=== PATIENT | female | born 1945 | race Caucasian/White ===

== ENCOUNTER 2017-02-16 19:53 | Inpatient (IN) | payer MEDICARE, BC ==
[~2017-02-16] VITALS: Ht 160 cm; Wt 82.7 kg
--- NOTE | ~2017-02-16 | OR ---
PATIENT'S NAME: DIANA MORALES [facility] AGE: 71 Y [address] ROOM: [place] [address] LOCATION: GICU ADMIT DATE: 02/16/2017 OR/Procedure Report DISCHARGE DATE: FAMILY PHYSICIAN: Som Mclean MD ATTENDING PHYSICIAN: MAURICIO BASHIR SURGEON: Bud Montalvo MD HAT IRONER: Aubrey Ortega PA-C DATE OF PROCEDURE: 02/19/2017 PREOPERATIVE DIAGNOSES: 1. Cholelithiasis. 2. Gallstone pancreatitis. POSTOPERATIVE DIAGNOSES: 1. Cholelithiasis. 2. Gallstone pancreatitis. PROCEDURE PERFORMED: Laparoscopic cholecystectomy. FINDINGS: The gallbladder was edematous, stones were present. ESTIMATED BLOOD LOSS: 20 mL. COMPLICATIONS: None. INDICATIONS FOR PROCEDURE: The patient is a 71-year-old female, who presented with abdominal pain, sepsis with cholangitis, and pancreatitis presumed from gallstones. She had an ERCP, has recovered both from her ERCP as well as from her cholangitis. I was asked to perform a cholecystectomy. We discussed this with the patient and her family the risks, benefits, and alternatives, and they elected to proceed. DESCRIPTION OF PROCEDURE: The patient was taken to the operating room. She was placed supine. She was given IV sedation and subsequently intubated. Her abdomen was prepped with ChloraPrep and sterilely draped. Local anesthetic was infiltrated just superior to the umbilicus. A transverse incision was created. The abdomen was elevated. A Veress needle was inserted. Pneumoperitoneum was induced. Following this, a 5-mm trocar was inserted followed by insertion of the camera. There was no injury from the initial trocar placement. Three more trocars were then positioned, an 11 mm epigastric and two 5 mm right subcostal ports. The skin overlying the peritoneum was first anesthetized prior to making these incisions. All 3 trocars were inserted under direct visualization. The gallbladder was then grasped. It was elevated. There were some adhesions that had to be taken down. It was very edematous. The infundibulum was grasped, retracted PATIENT'S NAME: DIANA MORALES [facility] AGE: 71 Y [address] ROOM: [place] [address] LOCATION: GICU ADMIT DATE: 02/16/2017 OR/Procedure Report DISCHARGE DATE: FAMILY PHYSICIAN: Som Mclean MD ATTENDING PHYSICIAN: MAURICIO BASHIR inferolaterally to expose the Calot triangle. The cystic duct and artery were dissected around circumferentially. A critical window was able to be obtained. These structures were then clipped and divided. Another small vessel was identified during the dissection. This was also clipped and divided. The gallbladder was removed from the liver bed using electrocautery. This was grasped and brought out through the epigastric port site. We did have to extract stones prior to complete removal. The operative field was then inspected. It appeared hemostatic. The area was irrigated and fluid was removed. The clips appeared to be in good position on the cystic duct and artery. The pneumoperitoneum was then released. The trocars were removed. The trocar sites appeared hemostatic. The fascia of the epigastric port site was approximated with 0 Vicryl suture followed by skin closure of all 4 port sites with 4-0 Monocryl suture. Steri-Strips and sterile dressings were placed. The patient was extubated and sent to recovery in good condition. MD PINO VILLALOBOS/amparol /[id number] d: 02/19/172030 t: 03/04/172, OPERATIVE SUMMARY
--- NOTE | ~2017-02-16 | DS ---
PATIENT'S NAME: DIANA MORALES [facility] AGE: 71 Y [address] ROOM: [id number] [place], [place] [address] LOCATION: [facility] [place] ADMIT DATE: 02/16/2017 Discharge Summary DISCHARGE DATE: 02/22/2017 FAMILY PHYSICIAN: Som Mclean MD ATTENDING PHYSICIAN: Eladio Ceja TENTATIVE DATE OF DISCHARGE: 02/22/2017. PRIMARY DIAGNOSIS: Septic shock. SECONDARY DIAGNOSES: Other acute diagnoses include: 1. Gallstone pancreatitis. 2. Acute cholangitis. 3. Choledocholithiasis. 4. Acute cholecystitis. 5. Acute on chronic hypoxic respiratory failure. 6. Elevated transaminases. 7. Chronic conditions include; paraplegia. 8. Hypophosphatemia. PRINCIPAL PROCEDURES: Done for the patient includes: Endoscopic retrograde cholangiopancreatography plus sphincterotomy plus gallstone extraction and stent placement by Dr. Cuba. Others include laparoscopic cholecystectomy by Dr. Monatlvo. LABORATORY DATA AND IMAGING STUDIES: Labs on admission: ABG; pH 7.42, pO2 of 47, and pCO2 of 37. Cardiac enzyme x1 set was negative. Troponin is less than 0.040, CPK 51, and proBNP 366. On admission, WBC was 17.7, prior to discharge was 6.7, H and H on admission were 12.6/39.3, prior to discharge were 9.8/31.5. Platelets remained stable at 169,000. Sodium on admission was 147, was stable throughout the hospital stay, and prior to discharge was 141. Creatinine on admission was 0.7, prior to discharge was 0.5. BUN was 21, was stable throughout the hospital stay. Bicarbonate on admission was 20, prior to discharge was 28, and potassium on admission was 3.8, has remained stable throughout the hospital stay, and prior to discharge was 3.7. On admission, ALT was 320, prior to discharge was 134; AST was 208, prior to discharge was 34; and alkaline phosphatase was 266, prior to discharge was 192. Total bilirubin was 3.4 on admission, prior to discharge was 0.4. On admission, phosphorus was 1.9, was repleted, prior to discharge was 3.0, and magnesium was 2.1, was stable throughout the hospital stay. UA on admission was leukocytes 100, nitrites positive, wbc's 5-10, blood 10, and bacteria negative. Repeat UA; leukocytes 25, nitrites were negative, wbc's were 2-5, and bacteria was negative. Procalcitonin on admission was 2.87, repeat was 5.17. Lipase on admission was 3309, highest level obtained was 4366, and prior to discharge was 265. D-dimer was 3.17. PATIENT'S NAME: DIANA MORALES [facility] AGE: 71 Y [address] ROOM: [address] [address] LOCATION: [facility] [place] ADMIT DATE: 02/16/2017 Discharge Summary DISCHARGE DATE: 02/22/2017 FAMILY PHYSICIAN: Som Mclean MD ATTENDING PHYSICIAN: Eladio Ceja MICROBIOLOGY: Blood culture x1 set, no growth. The second set was positive for Klebsiella pneumoniae. Urine culture, the first was contaminant, repeat was no growth x2 days. Repeat blood culture remained no growth up until discharge. RADIOLOGY: Chest x-ray is reported as rounded retrocardiac density likely represents a large hiatal hernia. Linear atelectasis is present at the left lung base. No focal infiltrate, pleural effusion, or pneumothorax. CTA for PE protocol, no evidence of pulmonary embolism. Areas of hazy patchy opacity bilaterally. Findings could be secondary to areas of atelectasis, infiltrate, or edema. CT abdomen and pelvis was reported as intrahepatic and extrahepatic biliary ductal dilatation with question of a filling defect within the distal common bile duct, underlying obstructive mass cannot be excluded, distended gallbladder with presence of gallstones correlation regarding possible acute cholecystitis, large hiatal hernia, and diverticulosis with no evidence of diverticulitis. Spirometry, the patient has no airflow limitation. There was suggestion of restrictive lung disease, but lung volumes are needed to confirm that. HOSPITAL COURSE: For history of present illness, please take a look at the H and P, which was done by Dr. Ceja. The patient was admitted to ICU given her septic shock which she presented with. She was started promptly on Zosyn. Source of her septic shock was thought to be secondary to acute cholangitis from choledocholithiasis. She did also present with gallstone pancreatitis as well. She was started on pressors. She remained in the ICU on pressors for at least 48 hours after which her pressors were successfully weaned off. She did also require oxygen, at baseline the patient normally uses oxygen at nighttime, however, while in the ICU, she required continuous use of oxygen at least to begin with she was on 4 L of oxygen which was weaned down to between 1 and 2 L of oxygen. She was also reviewed by the concrete pump operator and from the first day of the hospital stay, she was taken in for ERCP which was successful, had a sphincterotomy done with gallstone extraction as well as stent placement with plan to remove the stent in the next 3 to 4 weeks. Procedure was well tolerated by the patient without any intraoperative or postoperative complications. By the third day of the patient's hospital stay, she did get a General Surgery consult after all her enzyme numbers had looked better and she was taken into the OR for a laparoscopic cholecystectomy, which was well tolerated by the patient without any intraoperative or postoperative complications. Following the laparoscopic cholecystectomy, the patient was transferred out of the ICU to medical surgical floor where she remained and by this time, had been on physical therapy. While discussing the discharge planning with the family they were of the opinion that they would want the patient to be discharged to a swing bed in [place] where she will be able to get some more physical therapy done for more strengthening. Prior to the PATIENT'S NAME: DIANA MORALES [facility] AGE: 71 Y [address] ROOM: [place] [address] LOCATION: [facility] [place] ADMIT DATE: 02/16/2017 Discharge Summary DISCHARGE DATE: 02/22/2017 FAMILY PHYSICIAN: Som Mclean MD ATTENDING PHYSICIAN: Eladio Ceja hospital admission, the patient had been with home health aide in [place] which normally comes once a week. However, they would want something more and so they requested for patient to be discharged to a swing bed. The remaining part of this discharge summary will be done by the discharging team. Please also note that after we obtained the sensitivity of the blood culture, the patient who had been on Zosyn from the first day of the hospital stay was discontinued and was put on Levaquin to complete a total of 2 weeks of antibiotics. The patient's blood pressure medications were held throughout her hospital stay and were not restarted until after discharge. DISCHARGE MEDICATIONS: Medications upon discharge include: 1. Vitamin C 500 mg p.o. q. day. 2. Aspirin 81 mg p.o. q. day. 3. Colace 100 mg twice daily, new medication. 4. Keppra 500 mg p.o. q. day. 5. Multivitamin 1 tablet p.o. q. day. 6. Levaquin 750 mg new medication p.o. q. day for a total of 14 days of antibiotics. 7. Prilosec 20 mg p.o. twice daily. 8. Florastor 250 mg p.o. twice daily, new medication. 9. MiraLAX 17 g p.o. q. day p.r.n., new medication. 10. Ultram 50 mg p.o. q.6 hours p.r.n. 11. Calcium and vitamin D 1 tablet p.o. q. day. 12. Cozaar 50 mg p.o. q. day. 13. PreserVision 1 capsule p.o. twice daily. 14. Prolia 1 dose every 12 months. 15. Vitamin D3, 1000 units p.o. q. day. Discharge time spent on this patient is approximately 35 minutes, which included coordinating the discharge plan with the palliative care physician team. MD BRITTANI PADRON/danae /[id number] d: 02/21/17 2258 t: 03/04/17 1642, DISCHARGE SUMMARY
--- NOTE | ~2017-02-16 | PUL ---
PATIENT'S NAME: DIANA MORALES [facility] AGE: 71 Y [address] ROOM: [place] [address] LOCATION: [facility] ADMIT DATE: 02/16/2017 Pulmonary DISCHARGE DATE: FAMILY PHYSICIAN: Som Mclean MD ATTENDING PHYSICIAN: MAURICIO BASHIR NAME OF PROCEDURE: Spirometry DATE OF PROCEDURE: February 17, 2017 TECH: APOLLO Harper REASON FOR EXAM: Shortness of breath RESULTS: FVC was 1.86 liters which is 67% of predicted and low, FEV1 was 1.58 liters which is 76% of predicted and low, and FEV1/FVC was 85.2% and normal. The flow volume curve did not reveal any significant airflow limitation. PHYSICIAN INTERPRETATION: The patient has no airflow limitation. There is suggestion of restrictive lung disease but lung volumes are needed to confirm that. MD CATHI APPLE/josé manuel /[id number] dtt: 02/18/17 1622 , PILLO PIERCE dtd: 02/18/17 1313
--- NOTE | ~2017-02-16 | CON ---
PATIENT'S NAME: DIANA MORALES [facility] AGE: 71 Y [address] ROOM: [id number] [place], [place] [address] [place] [facility] [place]MIT DATE: 02/16/2017 Consultation DISCHARGE DATE: FAMILY PHYSICIAN: Som Mclean MD ATTENDING PHYSICIAN: MAURICIO BASHIR REFERRING PHYSICIAN: DEWEY GU MD Consult for Dr. Bashir, the hospitalist. HISTORY OF PRESENT ILLNESS: This pleasant 71-year-old lady admitted on 02/16/2017, status post marked weakness, generalized; did undergo eventually laparoscopic cholecystectomy on 02/19/2017. She presented initially with epigastric pain and intensity was graded as 8/10, and has also history of the followin. History of hypertension. 2. 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 3. She is at the present time and has been for quite some time using a scooter and controls it well, and she is feeling very comfortable with using it. 4. History of ischemic stroke without residual inabilities. 5. Has history of focal seizure disorder and reflux gastric disease. She is now alert, oriented. She has slight slurring in her speech and she feels that that has been with her, no new findings. She can transfer with minimum assistance, contact guard assistance of 1, can make 3 steps or so, and she is with a Salazar catheter. PHYSICAL EXAMINATION: VITAL SIGNS: Blood pressure 109/70, temperature 98.3, pulse 96.1, and respiration rate 14. She is 5 feet 3 inches and weighs 82.7 kg. GENERAL: She is alert and oriented to her surroundings, able to comprehend and express; however, as I mentioned, her speech is a little bit slurry, and she seems to be telling me over and over that that is her normal. NEUROLOGIC: Her muscle strength in bilateral lower extremities is weaker than bilateral upper extremities. Bilateral upper extremities are within normal limits. Bilateral lower extremities probably at a 4- to 3+, but is not well coordinated with her bilateral lower extremities. Deep tendon reflexes are present and equal throughout. Slightly brisk in bilateral lower extremities. MEDICATIONS: She is on the following medications: 1. MiraLax. 2. Heparin. 3. Protonix. 4. Zofran. PATIENT'S NAME: DIANA MORALES [facility] AGE: 71 Y [address] ROOM: [address] [address] [place] [facility] [place] ADMIT DATE: 02/16/2017 Consultation DISCHARGE DATE: FAMILY PHYSICIAN: Som Mclean MD ATTENDING PHYSICIAN: MAURICIO BASHIR 5. Tylenol. 6. Motrin. 7. Chassell. 8. Percocet. 9. Morphine sulfate. 10. Tramadol. 11. Multivitamin. 12. Keppra. 13. Vitamin D3. 14. Aspirin. 15. Vitamin C. 16. Colace. 17. Florastor. 18. Albuterol. 19. NaCl 0.9%. 20. Fentanyl. 21. Levaquin. 22. Dulcolax. ASSESSMENT AND PLAN: At the present time, I feel that she can do and when her pain from the cholecystectomy is better, I feel that she will be back to her normal level of activity. I feel that she can follow with her family physician and with local physical therapist. Thank you for this referral. I will be following along side with you when she is here. All the above was explained to her, she verbalized understanding and agreement. MD KASH DUNCAN/modl /[id number] d: 02/23/17 0013 t: 02/24/17 0810, CONSULTATION REPORT
--- NOTE | ~2017-02-16 | DS ---
PATIENT'S NAME: DIANA MORALES [facility] AGE: 71 Y [address] ROOM: [place] [address] [place] [facility] [place] DATE: 02/16/2017 Discharge Summary DISCHARGE DATE: 02/24/2017 FAMILY PHYSICIAN: Som Mclean MD ATTENDING PHYSICIAN: Eladio Ceja PRIMARY DIAGNOSES: 1. Severe sepsis. 2. Septic shock. 3. Klebsiella pneumonia bacteremia. 4. Acute cholangitis. 5. Choledocholithiasis, status post endoscopic retrograde cholangiopancreatogram with sphincterotomy and stent. 6. Seizure disorder. 7. Spastic paraplegia. 8. Essential hypertension. 9. Obstructive sleep apnea, on CPAP. OPERATIONS/PROCEDURES: ERCP with sphincterotomy and stent was performed by Dr. Cuba. Laparoscopic cholecystectomy was performed under the direction of Dr. Montalvo. HISTORY PRESENTING ILLNESS/REASON FOR ADMISSION: Please refer to the previous H and P, as well as subsequent discharge summary dictated by Dr. Adams. HOSPITAL COURSE: The patient was admitted to hospital as noted above with a presumptive diagnosis of severe sepsis and septic shock. She required aggressive fluid resuscitation. She received broad-spectrum antibiotic therapy with IV Zosyn. Please see the previous H and P, as well as subsequent discharge summary for details. Her discharge was postponed due to concerns with placement. In the interval, no significant complications developed. She did have a rehab evaluation by Dr. Monique at her request as she did not initially feel safe to go home. It was felt that she was too high functioning and not a good candidate for inpatient rehab. Additionally, [facility] facility placement was felt to be inappropriate. Ultimately, she was agreeable to going home with Home Health and inpatient physical therapy and occupational therapy at home. By the end of the day on 02/24/2017, it was felt she would be stable enough for discharge home with plans for close clinical followup with primary care provider as well as outpatient followup with General Surgery. DISCHARGE INSTRUCTIONS: PATIENT'S NAME: DIANA MORALES [facility] AGE: 71 Y [address] ROOM: [place] [address] [place] [facility] DATE: 02/16/2017 Discharge Summary DISCHARGE DATE: 02/24/2017 FAMILY PHYSICIAN: Som Mclean MD ATTENDING PHYSICIAN: Eladio Ceja DIET: Regular as tolerated. ACTIVITY: As tolerated. MEDICATIONS: 1. Vitamin C 500 mg p.o. daily. 2. Aspirin 81 mg p.o. daily. 3. Calcium with vitamin D 500 mg p.o. daily. 4. Vitamin D3 1000 units p.o. daily. 5. Colace 100 mg p.o. b.i.d. 6. Keppra 500 mg p.o. daily. 7. Multivitamin daily. 8. Omeprazole 20 mg p.o. b.i.d. 9. MiraLAX 17 g p.o. daily. 10. Florastor 250 mg p.o. b.i.d. x2 more weeks. 11. Albuterol per neb b.i.d. p.r.n. 12. Loving 5/325 1 to 2 tabs p.o. q.4 hours p.r.n. pain. 13. Tramadol 50 mg p.o. q.6 hours p.r.n. pain. 14. Albuterol per nebulizer q.4 hours p.r.n. wheezing or dyspnea. 15. PreserVision daily. 16. Prolia IV annually. 17. Trimethoprim 100 mg p.o. daily. FOLLOWUP: She will follow up with her primary care provider in 7 to 10 days. She will follow up Dr. Montalvo in 1 to 2 weeks. She will have a Home Health through the [facility] and physical therapy occupational therapy at home. CONDITION ON DISCHARGE: Fair. Total time spent on discharge process 45 minutes. MD ANABELL PERALTA/danae /[id number] d: 02/25/17 1055 t: 03/11/17 1725, DISCHARGE SUMMARY
--- NOTE | ~2017-02-16 | CON ---
PATIENT'S NAME: MOHINI MORALES [facility] AGE: 71 Y [address] ROOM: [address] [address] LOCATION: GICU ADMIT DATE: 02/16/2017 Consultation DISCHARGE DATE: FAMILY PHYSICIAN: Som Mclean MD ATTENDING PHYSICIAN: MAURICIO BASHIR DATE OF CONSULTATION: 02/19/2017 REFERRING PHYSICIAN: DEWEY GU MD CONSULTATION NOTE REASON FOR CONSULTATION: Gallstone pancreatitis. HISTORY OF PRESENT ILLNESS: Mohini Morales is a 71-year-old female, who states that 2 days prior to admission, she developed abdominal pain across her upper abdomen and through to her back. The following day she states that she was falling at home. She had nausea and vomiting. She also developed fever. The patient presented to our ER on February 16. The patient's evaluation included lab work that showed a white blood cell count of 17.7, hemoglobin of 12.6, hematocrit of 39.3, and platelets of 169,000. Liver function tests showed total bilirubin of 2.3, alkaline phosphatase 266, AST 208, and ALT 320. Lipase was elevated at 3309. The patient had a CT scan of the chest that was negative for pulmonary embolus. She then had a CT scan of the abdomen and pelvis that showed calcified gallstones present within a distended gallbladder with the common bile duct dilated at 19 mm. There was questionable filling defect within the distal aspect of the common bile duct raising the question of choledocholithiasis. The pancreas was within normal limits. A large hiatal hernia was noted. The patient was admitted under the care of the hospitalist and was given IV antibiotics. Blood culture did return positive with Klebsiella pneumoniae. Gastroenterology was consulted and they proceeded with an ERCP. On February 17, sphincterotomy was performed along with placement of a biliary stent. Common bile duct stones were removed. Today, Dr. Adams requested Surgery consultation for consideration of removal of the gallbladder. The patient states that she is feeling better. She has had some mild discomfort in the epigastric area. No nausea or vomiting now. The patient remains on 1 L of oxygen since having the general anesthetic for the ERCP. She has concerns about proceeding with an operation due to her past medical history. PAST MEDICAL HISTORY: PATIENT'S NAME: MOHINI MORALES [facility] AGE: 71 Y [address] ROOM: [place] [address] LOCATION: GICU ADMIT DATE: 02/16/2017 Consultation DISCHARGE DATE: FAMILY PHYSICIAN: Som Mclean MD ATTENDING PHYSICIAN: MAURICIO BASHIR ALLERGIES: CODEINE AND PLAVIX. CURRENT MEDICATIONS: Medications at home include: 1. Aspirin 81 mg p.o. q. day. 2. Calcium 1 tablet p.o. q. day. 3. Cozaar 50 mg p.o. q. day. 4. Theragran 1 tablet p.o. q. day. 5. Prilosec 20 mg p.o. b.i.d. 6. PreserVision 1 capsule p.o. b.i.d. 7. Prolia 1 dose IV q.12 months. 8. Ultram 50 mg p.o. q.6 hours p.r.n. pain. 9. Trimethoprim 100 mg p.o. q. day. 10. Ascorbic acid 500 mg p.o. q. day. 11. Vitamin D3, 1000 units p.o. q. day. 12. Keppra 500 mg p.o. q. day. 13. Z-Marin 1 dose p.o. q. day. 14. Medications in the hospital at this time include: Albuterol. 15. Levaquin. 16. Potassium phosphate. 17. Aspirin. 18. Colace. 19. Florastor. 20. Keppra. 21. Os-Brain. 22. Protonix. 23. Theragran. 24. Vitamins C. 25. Vitamin D. 26. Subcutaneous heparin along with p.r.n. medications of lidocaine, albuterol, Sublimaze, Zofran, MiraLAX, Tylenol, and Ultram. ILLNESSES: Include: 1. Spastic paraplegia, familial. 2. Focal seizure disorder. 3. Hypertension. 4. Gastroesophageal reflux disease. 5. History of CVA. PAST SURGICAL HISTORY: Operations include: 1. Four back surgeries. 2. Hip replacement. PATIENT'S NAME: MOHINI MORALES [facility] AGE: 71 Y [address] ROOM: [place] [address] LOCATION: GICU ADMIT DATE: 02/16/2017 Consultation DISCHARGE DATE: FAMILY PHYSICIAN: Som Mclean MD ATTENDING PHYSICIAN: MAURICIO BASHIR 3. Partial thyroidectomy. 4. Appendectomy. 5. Hysterectomy. SOCIAL HISTORY: The patient lives in [place]. She lives with her . She is a nonsmoker and does not consume alcohol. FAMILY HISTORY: Mother had Hodgkin's lymphoma. Sister had some type of cancer. REVIEW OF SYSTEMS: The patient denies any recent sinus congestion, ear pain, or throat pain. She states that she always has a cough and is always short of breath. This is no worse for her now than usual. Denies any chest pain, and she does have occasional constipation due to decreased activity. No blood in her stool. Denies any problems urinating, although she is noticing frequency of urination today most likely from IV fluids and recovery from the sepsis. PHYSICAL EXAMINATION: VITAL SIGNS: Temperature is 98.6, blood pressure 128/78, pulse 92, and respirations 20. GENERAL: A 71-year-old female, who is sitting up in the recliner. She is alert, pleasant, and cooperative. She does have some slurring of her speech that she states is from the paraplegia and also from the stroke. She states that she uses a scooter at home for mobility purposes. HEENT: Eyes, ears, nose, and throat are otherwise grossly normal. She is on 1 L of oxygen by nasal cannula. LUNGS: Diminished, but clear. HEART: Regular rate and rhythm. ABDOMEN: Bowel sounds present. Abdomen is soft, with mild tenderness in the epigastric region. She has a few areas of ecchymoses from the heparin subcutaneous. I have difficulty visualizing the scars from the operations that she states that she has had including the appendectomy and hysterectomy. There does appear to be a small scar at the umbilicus. No obvious hernia. EXTREMITIES: The patient moves her upper extremities without difficulty. She states that she is unable to ambulate due to the paraplegia. LABORATORY DATA: Lab work: White blood cell count has improved from 17.7 on admission to 8.9 yesterday. Total bilirubin increased from 2.3 on admission to 3.4 on February 17 and down to 0.7 today. AST has improved from 208 to 34. ALT improved from 320 down to 134. Lipase has improved from 3309 on February 16, 4366 on February 17, and 265 today. Amylase was 588 on February 17 and has not been repeated. Repeat blood cultures are showing no growth at this time. Urine culture has PATIENT'S NAME: MOHINI MORALES [facility] AGE: 71 Y [address] ROOM: [id number] [place], [place] [address] LOCATION: [facility] ADMIT DATE: 02/16/2017 Consultation DISCHARGE DATE: FAMILY PHYSICIAN: Som Mclean MD ATTENDING PHYSICIAN: MAURICIO BASHIR. Pulmonary function tests showed suggestion of restrictive lung disease, but lung volumes would be needed to confirm that. There was no airflow limitation. ASSESSMENT: 1. A 71-year-old female admitted on 02/16/2017 with sepsis with Klebsiella pneumoniae in her blood and evidence for cholangitis, gallstone pancreatitis, and choledocholithiasis, etc,. The patient is status post endoscopic retrograde cholangiopancreatography. 2. Spastic paraplegia, familial. 3. Focal seizure disorder. 4. History of stroke. 5. Hypertension. 6. Gastroesophageal reflux disease. PLAN: I discussed with the patient and family recommendations in regard to removal of the gallbladder. I discussed that the treatment initially was to remove the gallstones from the common bile duct which has been completed by Gastroenterology. The next step is to remove the gallbladder to try to help prevent this from happening again. The patient and family are a little hesitant given the patient's history of the paraplegia and some respiratory issues. I discussed with them that the alternative approach would be not to proceed with surgery, but to take the chances in regard to whether this happens again or not. Certainly, she would be at increase risk given one episode of gallstone pancreatitis/choledocholithiasis for it happening again. After some discussion, the patient and family agree that they would rather proceed with surgery rather than taking the risks of that happening again. I discussed risks of bleeding, infection, injury to other structures, heart problems, lung problems, etc,. I discussed with the patient that given her history of the paraplegia and respiratory issues, she may need to be in the hospital longer than the average cholecystectomy patient. I also discussed the potential of needing to convert to an open procedure. Ultimately, they did decide to go ahead and proceed with surgery. We will plan to proceed early this afternoon. Dr. Saunders will evaluate the patient preoperatively. We will review over his recommendations along with risks, benefits of surgery versus observation. At that time, if they choose to proceed then the consent will be obtained. The patient has been made n.p.o. She continues on Levaquin for antibiotic. Dr. Saunders is involved in assessment and plan and is available for supervision. LIN MCKEON PA-C FOR TEVIN SAUNDERS MD PATIENT'S NAME: MOHINI MORALES [facility] AGE: 71 Y [address] ROOM: [place] [address] LOCATION: [facility] ADMIT DATE: 02/16/2017 Consultation DISCHARGE DATE: FAMILY PHYSICIAN: Som Mclean MD ATTENDING PHYSICIAN: MAURICIO BASHIR/danae /[id number] d: 02/19/17 1350 t: 03/04/17 1125, CONSULTATION REPORT
--- NOTE | ~2017-02-16 | ER ---
PATIENT'S NAME: DIANA MORALES [facility] AGE: 71 Y [address] ROOM: [place] [address] LOCATION: [facility] ADMIT DATE: 02/16/2017 ER/Outpatient Report DISCHARGE DATE: FAMILY PHYSICIAN: PHYSICIAN, UNKNOWN ATTENDING PHYSICIAN: MAURICIO BASHIR Time of Arrival: 1950 hours. Time of Evaluation: 1950 hours. CHIEF COMPLAINT: Chest pain and midepigastric pain. HISTORY OF PRESENT ILLNESS: The patient is a 71-year-old female, who presents to the emergency department today with a chief complaint of chest pain and midepigastric abdominal pain. She reports this started prior to arrival. She reports she took her temperature at home and it was 102. She has also had some nausea and vomiting. She does report some shortness of breath also with it. She is paraplegic, however, is feeling more weak than normal. The pain is currently 9/10 in severity. She denies any diaphoresis. Denies any ripping or tearing sensation. PAST MEDICAL HISTORY: Hypertension, paraplegia from an unknown cause, CVA 10 years ago, hiatal hernia. PAST SURGICAL HISTORY: Hysterectomy, appendectomy, thyroidectomy, back surgery x4, right hip replacement. SOCIAL HISTORY: The patient denies any tobacco, alcohol, or illicit drug use. ALLERGIES: TO CODEINE AND PLAVIX. MEDICATIONS: Please see list. PRIMARY CARE DOCTOR: None. REVIEW OF SYSTEMS: All systems are reviewed by myself and are negative with the exception of those discussed in the HPI and past medical history. PATIENT'S NAME: DIANA MORALES [facility] AGE: 71 Y [address] ROOM: [place] [address] LOCATION: [facility] ADMIT DATE: 02/16/2017 ER/Outpatient Report DISCHARGE DATE: FAMILY PHYSICIAN: PHYSICIAN, UNKNOWN ATTENDING PHYSICIAN: MAURICIO BASHIR PHYSICAL EXAMINATION: VITAL SIGNS: Weight 76.8 kg, blood pressure 98/66, pulse 110, respiratory rate 20, temperature 99.1, oxygen saturation is 88% on room air, 96% on 4 L nasal cannula. GENERAL: The patient is a 71-year-old female, who appears older than stated age. She is sleepy, but arousable. She does answer questions appropriately. HEENT: Head: Normocephalic, atraumatic. Pupils are equal, round, and reactive to light and accommodating. Nares are patent bilaterally. TMs are clear. Oropharynx is clear. Mucous membranes are dry. NECK: Supple. There is no nuchal rigidity. CARDIOVASCULAR: Tachycardic. No murmurs, rubs, or gallops. LUNGS: Clear to auscultation bilaterally. No wheezes, rales, or rhonchi. ABDOMEN: Soft with moderate mid epigastric and right upper quadrant tenderness to palpation. She has no rebound, rigidity, or guarding. Positive bowel sounds. MUSCULOSKELETAL: The patient is a paraplegic, decreased weakness in bilateral lower extremities. SKIN: Warm and dry. LABORATORY DATA AND X-RAYS: Labs and x-rays are obtained. EKG is obtained, is interpreted by myself at 2002 hours. It shows sinus tachycardia with a rate of 111, normal axis, normal interval. No ST elevation, ST depression. There is nonspecific T-wave inversions. Venous blood gas: 7.42, 34, 47, 23, -1.8. Lactate is 1.8. CBC is remarkable for white blood cell count 17.7, 16% bands, otherwise normal. Lipase is 3309. Pro-BNP is 366. Procalcitonin is 2.87. CMP is remarkable for a CO2 of 20, total bilirubin of 2.3, alkaline phosphatase 266, AST is 208, ALT is 320. Mag is normal. CK is normal. CK-MB is normal. Troponin is normal. D-dimer is elevated at 3.147. Coags are normal. Urinalysis with positive nitrite, 100 leukocyte esterase, 50 ketones, 10 blood, 5-10 wbc's/epithelials. A CT scan of the chest is obtained. It shows no evidence of PE. There is a large hiatal hernia. There is multifocal patchy atelectasis bilaterally. There is mild nonspecific septal thickening in the lungs, which could represent mild edema. A CT scan of the abdomen and pelvis shows small hepatic hypodensities likely cysts. There is cholelithiasis with prominent distention of the gallbladder. There is moderate biliary ductal dilatation. There is a possible small stone in the distal common bile duct. There is no hydronephrosis. There is a small splenic hypodensity, likely a cyst. Pancreas is unremarkable. Abdominal aorta is normal in caliber. There is a moderate hiatal hernia, prominent diverticulosis. Appendix is not seen. No bowel obstruction. Impression: Cholelithiasis with marked gallbladder PATIENT'S NAME: DIANA MORALES [facility] AGE: 71 Y [address] ROOM: [id number] [place], [place] [address] LOCATION: [facility] ADMIT DATE: 02/16/2017 ER/Outpatient Report DISCHARGE DATE: FAMILY PHYSICIAN: PHYSICIAN, UNKNOWN ATTENDING PHYSICIAN: MAURICIO BASHIR distention and moderate biliary ductal dilatation with possible choledocholithiasis. IMPRESSION: 1. Acute cholangitis with suspected choledocholithiasis and cholelithiasis. 2. Acute pancreatitis. 3. Severe sepsis due to acute cholangitis. 4. Hypotension, fluid responsive. 5. Acute urinary tract infection, suspect bladder, present on arrival. 6. Critical care time 35 minutes. 7. Initial visit. EMERGENCY DEPARTMENT COURSE: The patient was brought back to the examination room. Seen and evaluated immediately upon arrival by myself. An IV is established. The patient is noted to have blood pressures in the 80s systolicly over 50s diastolic. Severe sepsis time zero is noted to be 2006. She is quite sleepy but does answer questions and is arousable. The patient is given 2.5 L of normal saline IV. Levophed drip was ordered, however, was not required as the patient was fluid responsive. The patient was ordered Tylenol, however, she did report that she took it 30 minutes prior to arrival. She did have reported fever of 102 at home. T-max here in the emergency department is 99.1. Bedside ultrasound was performed by myself, the gallbladder exam shows cholelithiasis, there is no pericholechystic fluid, no gallbladder wall thickening, common bile duct measures 1.2 cm. Further laboratory analysis and imaging are obtained as described above. The patient was started on Zosyn 4.5 g IV as well as vancomycin 1500 mg IV. The results of the testing are obtained. I have discussed the case with Dr. [place] with Gastroenterology at 2150 hours. He has recommended LR at 150 to 300 mL per hour as well as make the patient n.p.o. with anticipation for endoscopy and ERCP tomorrow. I have discussed the case with Dr. Bashir with the Hospitalist Service. He does agree to accept the patient for further evaluation, treatment, and management. The patient did require cumulative critical care time of 35 minutes. This critical care time did include talking with family, talking with consultants, ordering tests, reviewing tests, as well as close monitoring the patient with sepsis. The patient was here in the emergency department for greater than 2 hours. The results were discussed with the patient and her daughter, who is at the bedside. Their questions were answered. They are without further questions at this time. DISPOSITION: The patient is admitted under the care of Dr. Bashir in consultation with Gastroenterology in fair condition. ROYER ESCOBAR DO PATIENT'S NAME: DIANA MORALES [facility] AGE: 71 Y [address] ROOM: [place] [address] LOCATION: [facility] ADMIT DATE: 02/16/2017 ER/Outpatient Report DISCHARGE DATE: FAMILY PHYSICIAN: PHYSICIAN, UNKNOWN ATTENDING PHYSICIAN: MAURICIO BASHIR/danae /[id number] d: 02/17/17 0249 t: 02/17/17 0433, OUTPATIENT REPORT
--- NOTE | ~2017-02-16 | HP ---
PATIENT'S NAME: DIANA MORALES [facility] AGE: 71 Y [address] ROOM: [place] [address] LOCATION: [facility] ADMIT DATE: 02/16/2017 History & Physical DISCHARGE DATE: FAMILY PHYSICIAN: PHYSICIAN, UNKNOWN ATTENDING PHYSICIAN: MAURICIO BASHIR DATE OF SERVICE: 02/16/2017 CHIEF COMPLAINT: Epigastric pain, nausea, vomiting, and fever. HISTORY OF PRESENT ILLNESS: This is a 71-year-old female, who lives in [place] and came here to [place] to visit her daughter and the story is that since yesterday around 3:00 p.m., the patient has been complaining of epigastric pain, intensity about 8/10, with radiation to the back associated with nausea and vomiting, about three episodes of emesis without blood and also had a fever of about 102 taken at home today. Her last bowel movement was this morning and it was normal. The patient chronically has dyspnea on exertion, and this has been going on for a long time and has not worsened. No chest pain. No cough, urinary frequency, urgency, or dysuria. Today, she came to the hospital here because the epigastric pain was getting worse. The patient has never felt like this before. REVIEW OF SYSTEMS: As mentioned in the history of present illness. All other systems reviewed and negative, except those mentioned in the history of present illness. PAST MEDICAL HISTORY: 1. Hypertension. 2. 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 3. History of prior ischemic stroke without neurological sequela. 4. Focal seizure disorder. 5. Gastroesophageal reflux disease. This is per patient interview because we do not have any medical records on file in the [facility]. ALLERGIES: PLAVIX, WHICH CAUSES HIVES AND CODEINE, WHICH CAUSES HER TO FEEL SICK. HOME MEDICATIONS: Currently will be reconciled. PATIENT'S NAME: DIANA MORALES [facility] AGE: 71 Y [address] ROOM: [place] [address] LOCATION: [facility] ADMIT DATE: 02/16/2017 History & Physical DISCHARGE DATE: FAMILY PHYSICIAN: PHYSICIAN, UNKNOWN ATTENDING PHYSICIAN: MAURICIO BASHIR SOCIAL HISTORY: The patient denies any alcohol or illegal drugs or cigarette smoking. FAMILY HISTORY: Father had congestive heart failure and mother had Hodgkin lymphoma. PAST SURGICAL HISTORY: Lower back surgery in the past. PHYSICAL EXAMINATION: VITAL SIGNS: At the time of my dictation, temperature 98, blood pressure 110/80, MAP of 83, respiration of 14, heart rate of 89, and saturation of 96% on 1 L nasal cannula. GENERAL APPEARANCE: Alert and oriented x3. Currently, in no acute distress. HEENT: Pupils are equally round and reactive to light. She does have icteric sclerae in both eyes, very mild. Also, has jaundice under her tongue. Nasal turbinates are normal bilaterally. Moist oral mucosa. NECK: No JVD. CARDIOVASCULAR: Regular rate and rhythm. No murmur. No rubs. No gallops. RESPIRATORY: Clear. ABDOMEN: Obese, soft, tender to palpation in the epigastric area and in the right upper quadrant. Could not appreciate any palpable mass. Nondistended. Bowel sounds are present. No abdominal rigidity. No finding to suggest peritonitis. EXTREMITIES: Bilateral pitting edema in both lower extremities. This is chronic and unchanged according to the patient. NEUROLOGIC: Muscle weakness about 2-3/5 in both lower extremities. This is chronic. Otherwise, unremarkable. SKIN: Some erythema in the right lower extremity in the right foot. This is chronic according to the patient. No cyanosis. No ulcer. LABORATORY DATA: Venous blood gas performed on room air showed pH of 7.42, pCO2 of 34, bicarbonate 22.1, lactic acid 1.8. Troponin less than 0.04. ProBNP is 366, CPK 51. White blood cells 17.7, hemoglobin 12.6, hematocrit 39.3, MCV 96.1, platelet 169. Glucose 138, creatinine 0.7, sodium 142, potassium 3.8, chloride 110, CO2 of 20, calcium 8.9, total protein 6.7, albumin 3.6, AST 208, ALT 320, alkaline phosphatase 266, total bilirubin 2.3, magnesium 2.1, anion gap 15.8, GFR more than 60. PATIENT'S NAME: DIANA MORALES [facility] AGE: 71 Y [address] ROOM: [place] [address] LOCATION: [facility] ADMIT DATE: 02/16/2017 History & Physical DISCHARGE DATE: FAMILY PHYSICIAN: PHYSICIAN, UNKNOWN ATTENDING PHYSICIAN: MAURICIO BASHIR INR 1.02. PTT 24. Urinalysis: 100 leukocytes, positive nitrites, negative bacteria, white blood cells 5-10, blood 10. Lipase 3309. CK-MB 0.8. Procalcitonin 2.87. D-dimer 3.17. IMAGING STUDY: 1. Chest x-ray is taken and official reading is pending. 2. CT pulmonary angiogram on admission. The preliminary report was read as no pulmonary embolism. Multifocal patchy atelectasis bilaterally. No pleural effusion. Large hiatal hernia. No dissection of the aorta. Mild nonspecific septal thickening in the lungs could represent mild edema. 3. CT abdomen and pelvis with IV contrast on admission. The preliminary report is read as cholelithiasis with marked gallbladder dilatation and moderate biliary ductal dilatation. There is possible choledocholithiasis. There is also moderate biliary ductal dilatation. There is also a possible small stone in the distal common bile duct. No hydronephrosis. The pancreas is unremarkable. Moderate hiatal hernia. ASSESSMENT AND PLAN: 1. Regarding her severe sepsis with hypotension, secondary to cholelithiasis with possible cholecystitis and pancreatitis as well as cholangitis, secondary to possible choledocholithiasis: The plan will be IV fluids. She already got 3 L in the ER. Therefore, I do not want to volume overload her. Currently, blood pressure is stable. I will give her lactated Ringer's maintaining at 100 mL/h for now. If she becomes hypotensive with MAP less than 65, then we will start IV Levophed drip. Coverage with antibiotics with IV Zosyn. Pain control with IV fentanyl p.r.n. and IV morphine p.r.n. N.p.o. Gastroenterology has already been contacted by the ER physician and the plan will be ERCP in the morning by Dr. [place]. IV Zofran p.r.n. for nausea. Ultrasound of the abdomen can be obtained if necessary. But the patient is already scheduled for the ERCP in the morning. Deferred to the morning team to decide about ultrasound of the abdomen which can have a better visualization of the biliary tract. Further plan depends on clinical course. 2. Regarding her hypertension: Hold all the blood pressure medication in the setting of a severe sepsis with hypotension. 3. Regarding her focal seizure disorder: Continue the home Keppra. We will be using IV dose instead of p.o. because she is n.p.o. Home medication is currently being reconciled and will be addressed once the medication list is ready. 4. Regarding her hiatal hernia: Continue IV Protonix 40 mg daily. 5. Regarding her obstructive sleep apnea, on home CPAP: The daughter will PATIENT'S NAME: DIANA MORALES [facility] AGE: 71 Y [address] ROOM: [place] [address] LOCATION: [facility] ADMIT DATE: 02/16/2017 History & Physical DISCHARGE DATE: FAMILY PHYSICIAN: PHYSICIAN, UNKNOWN ATTENDING PHYSICIAN: MAURICIO BASHIR bring the CPAP from home and she can continue the CPAP at night. 6. DVT prophylaxis: Compression devices in the setting of ERCP in the morning. 7. Code Status: She is a full code. Time spent on the day of admission 45 minutes including chart review, interviewing the patient, examining the patient, addressing all the questions and concerns the patient had, and going over the plan of care in detail with the patient and nurses. Further plan depends on the clinical course. MAURICIO BASHIR MD CC/danae /[id number] D: [id number] T: 449 HISTORY & PHYSICAL
[2017-02-16 20:08] LABS: BICARBONATE 22.1 mmol/L (18.0-23.0); LACTATE 1.8 mEq/L (0.50-1.60); PCO2 34 mmHg (35-45)
[2017-02-16 20:09] LABS: PO2 47 mmHg (80-90)
[2017-02-16 20:10] LABS: HEMATOCRIT 39.3 % (33.0-46.0); HEMOGLOBIN 12.6 g/dL (10.0-15.0); MCH 30.8 pg (27.0-34.0); MCHC 32.1 gm/dL (32.0-36.5); MCV 96.1 fl (83.0-98.0); MPV 11.3 fl (9.4-12.4); PLATELET COUNT 169 K/uL (150-450); RBC 4.09 M/uL (3.50-5.50); RDW-CV 14.4 % (11.9-14.6); WBC 17.7 K/uL (4.0-11.0)
[2017-02-16 20:19] LABS: INR - (THERAPEUTIC) 1.02 (0.92-1.07); PROTIME 10.7 SECONDS (9.8-11.4); PTT 24 SECONDS (25-32)
[2017-02-16 20:30] LABS: ALBUMIN 3.6 gm/dL (3.5-5.0); ALK PHOS 266 IU/L (33-138); ANION GAP 15.8 (10.0-19.0); AST 208 IU/L (10-40); BLOOD UREA NITROGEN 21 mg/dL (6-24); CALCIUM 8.9 mg/dL (8.5-10.5); CHLORIDE 110 mMol/L (96-110); CO2 20 mMol/L (22-32); CPK 51 IU/L (21-215); CREATININE 0.7 mg/dL (0.5-1.1); ESTIMATED GFR (MDRD EQUATION) > 60; MAGNESIUM 2.1 mg/dL (1.8-2.6); POTASSIUM 3.8 mMol/L (3.7-5.1); SODIUM 142 mMol/L (135-145); TOTAL BILIRUBIN 2.3 mg/dL (0.0-1.5); TOTAL PROTEIN 6.7 g/dL (6.0-8.4)
[2017-02-16 20:32] LABS: ALT 320 IU/L (12-78)
[2017-02-16 20:34] LABS: BILIRUBIN URINE NEGATIVE (NEGATIVE); BLOOD URINE 10 /UL (NEGATIVE); COLOR URINE AMBER (YELLOW); GLUCOSE URINE NEGATIVE (NEGATIVE); KETONE URINE 50 mg/dL (NEGATIVE); LEUKOCYTES URINE 100 /UL (NEGATIVE); NITRITE URINE POSITIVE (NEGATIVE); PROTEIN URINE 30 mg/dL (NEGATIVE); SPEC GRAVITY URINE 1.025 (1.003-1.035); TURBIDITY URINE CLEAR (CLEAR); UROBILINOGEN URINE 8 mg/dL (NORMAL)
[2017-02-16 20:36] LABS: ABSOLUTE NEUTROPHIL CT (ANC) 16.6 K/uL (1.8-7.8); BANDED NEUTROPHIL # 2.8 K/uL (0.0-0.1); BANDED NEUTROPHILS % 16 %; LYMPHOCYTE # 0.4 K/uL (0.8-4.0); LYMPHOCYTE % 2 %; MONOCYTE # 0.5 K/uL (0.0-1.0); SEGMENTED NEUTROPHIL # 13.8 K/uL (1.8-7.8); SEGMENTED NEUTROPHIL % 78 %
[2017-02-16 20:41] LABS: BACTERIA URINE NEGATIVE (NEGATIVE); MUCUS URINE 1+ (NEGATIVE); RBC URINE NEGATIVE #/HPF (NEGATIVE)
[2017-02-17 08:17] LABS: HEMATOCRIT 37.1 % (33.0-46.0); HEMOGLOBIN 11.6 g/dL (10.0-15.0); MCH 30.9 pg (27.0-34.0); MCHC 31.3 gm/dL (32.0-36.5); MCV 98.9 fl (83.0-98.0); MPV 11.3 fl (9.4-12.4); RBC 3.75 M/uL (3.50-5.50); RDW-CV 14.5 % (11.9-14.6); WBC 11.6 K/uL (4.0-11.0)
[2017-02-17 08:23] LABS: INR - (THERAPEUTIC) 1.03 (0.92-1.07); PROTIME 10.8 SECONDS (9.8-11.4)
[2017-02-17 08:31] LABS: ALBUMIN 2.8 gm/dL (3.5-5.0); ALK PHOS 233 IU/L (33-138); ALT 264 IU/L (12-78); ANION GAP 11.6 (10.0-19.0); AST 145 IU/L (10-40); BLOOD UREA NITROGEN 13 mg/dL (6-24); CALCIUM 7.8 mg/dL (8.5-10.5); CHLORIDE 113 mMol/L (96-110); CO2 23 mMol/L (22-32); CREATININE 0.6 mg/dL (0.5-1.1); ESTIMATED GFR (MDRD EQUATION) > 60; POTASSIUM 3.6 mMol/L (3.7-5.1); SODIUM 144 mMol/L (135-145); TOTAL PROTEIN 5.7 g/dL (6.0-8.4)
[2017-02-17 08:33] LABS: TOTAL BILIRUBIN 3.4 mg/dL (0.0-1.5)
[2017-02-17] MEDS ORDERED: CALCIUM 500 +1 EACH PO (09:39)
[2017-02-17] MEDS ORDERED: ASPIRIN LO-DOSE81 MG PO (09:39)
[2017-02-17] MEDS ORDERED: THERAGRAN-M1 TAB PO (09:40)
[2017-02-17] MEDS ORDERED: COZAAR50 MG PO (09:40)
[2017-02-17] MEDS ORDERED: PRILOSEC20 MG PO (09:41)
[2017-02-17] MEDS ORDERED: PRESERVISION A1 EACH PO (09:41)
[2017-02-17] MEDS ORDERED: PROLIA60 MG/ML IV (09:43)
[2017-02-17] MEDS ORDERED: ULTRAM50 MG PO (09:45)
[2017-02-17] MEDS ORDERED: VITAMIN D1000 UNIT PO (09:46)
[2017-02-17] MEDS ORDERED: ASCORBIC ACID500 MG PO (09:46)
[2017-02-17] MEDS ORDERED: TRIMETHOPRIM100 MG PO (09:46)
[2017-02-17] MEDS ORDERED: KEPPRA500 MG PO (09:47)
[2017-02-17] MEDS ORDERED: Z-PAK250 MG PO (09:54)
[2017-02-18 05:27] LABS: HEMATOCRIT 32.1 % (33.0-46.0); HEMOGLOBIN 9.9 g/dL (10.0-15.0); IMMATURE GRANULOCYTE # 0.1 K/uL (0.0-0.3); IMMATURE GRANULOCYTE % 0.7 %; LYMPHOCYTE # 0.6 K/uL (0.8-4.0); LYMPHOCYTE % 6.5 %; MCH 30.7 pg (27.0-34.0); MCHC 30.8 gm/dL (32.0-36.5); MCV 99.4 fl (83.0-98.0); MONOCYTE # 0.5 K/uL (0.0-1.0); MONOCYTE % 6.1 %; MPV 11.3 fl (9.4-12.4); NEUTROPHIL # (ANC) 7.7 K/uL (1.8-7.8); NEUTROPHIL % 86.7 %; NRBC % 0 /100WBC (0-0.00); PLATELET COUNT 166 K/uL (150-450); RBC 3.23 M/uL (3.50-5.50); RDW-CV 14.2 % (11.9-14.6); WBC 8.9 K/uL (4.0-11.0)
[2017-02-18 05:39] LABS: ALBUMIN 2.5 gm/dL (3.5-5.0); ALK PHOS 175 IU/L (33-138); ALT 169 IU/L (12-78); ANION GAP 14.4 (10.0-19.0); AST 54 IU/L (10-40); BLOOD UREA NITROGEN 12 mg/dL (6-24); CHLORIDE 114 mMol/L (96-110); CO2 21 mMol/L (22-32); CREATININE 0.4 mg/dL (0.5-1.1); ESTIMATED GFR (MDRD EQUATION) > 60; MAGNESIUM 2.2 mg/dL (1.8-2.6); POTASSIUM 4.4 mMol/L (3.7-5.1); SODIUM 145 mMol/L (135-145)
[2017-02-18 05:41] LABS: CALCIUM 7.4 mg/dL (8.5-10.5); TOTAL BILIRUBIN 0.6 mg/dL (0.0-1.5)
[2017-02-18 16:02] LABS: BILIRUBIN URINE NEGATIVE (NEGATIVE); BLOOD URINE NEGATIVE /UL (NEGATIVE); COLOR URINE YELLOW (YELLOW); GLUCOSE URINE NEGATIVE (NEGATIVE); KETONE URINE 15 mg/dL (NEGATIVE); LEUKOCYTES URINE 25 /UL (NEGATIVE); NITRITE URINE NEGATIVE (NEGATIVE); PROTEIN URINE 15 mg/dL (NEGATIVE); SPEC GRAVITY URINE 1.025 (1.003-1.035); TURBIDITY URINE 1+ (CLEAR); UROBILINOGEN URINE 4 mg/dL (NORMAL)
[2017-02-18 16:20] LABS: BACTERIA URINE NEGATIVE (NEGATIVE); EPITHELIAL URINE 20-50 #/HPF (NEGATIVE); RBC URINE NEGATIVE #/HPF (NEGATIVE)
[2017-02-19 06:00] LABS: ALBUMIN 2.8 gm/dL (3.5-5.0); ALK PHOS 192 IU/L (33-138); ALT 134 IU/L (12-78); AST 34 IU/L (10-40); BLOOD UREA NITROGEN 13 mg/dL (6-24); CALCIUM 8.5 mg/dL (8.5-10.5); CHLORIDE 112 mMol/L (96-110); CO2 24 mMol/L (22-32); CREATININE 0.6 mg/dL (0.5-1.1); ESTIMATED GFR (MDRD EQUATION) > 60; SODIUM 142 mMol/L (135-145); TOTAL BILIRUBIN 0.7 mg/dL (0.0-1.5)
[2017-02-19 06:01] LABS: PHOSPHORUS 1.8 mg/dL (2.5-4.9)
[2017-02-20 05:10] LABS: BASOPHIL % 0.3 %; EOSINOPHIL # 0.2 K/uL (0.0-0.5); EOSINOPHIL % 3.6 %; HEMATOCRIT 31.5 % (33.0-46.0); HEMOGLOBIN 9.8 g/dL (10.0-15.0); IMMATURE GRANULOCYTE # 0.1 K/uL (0.0-0.3); IMMATURE GRANULOCYTE % 0.9 %; LYMPHOCYTE # 1.2 K/uL (0.8-4.0); LYMPHOCYTE % 18.4 %; MCH 31.1 pg (27.0-34.0); MCHC 31.1 gm/dL (32.0-36.5); MONOCYTE # 0.6 K/uL (0.0-1.0); MPV 11.1 fl (9.4-12.4); NEUTROPHIL # (ANC) 4.6 K/uL (1.8-7.8); NEUTROPHIL % 67.8 %; NRBC % 0 /100WBC (0-0.00); PLATELET COUNT 166 K/uL (150-450); RBC 3.15 M/uL (3.50-5.50); RDW-CV 14.6 % (11.9-14.6); WBC 6.7 K/uL (4.0-11.0)
[2017-02-20 05:24] LABS: BLOOD UREA NITROGEN 7 mg/dL (6-24); CALCIUM 7.9 mg/dL (8.5-10.5); CHLORIDE 108 mMol/L (96-110); CO2 29 mMol/L (22-32); CREATININE 0.4 mg/dL (0.5-1.1); ESTIMATED GFR (MDRD EQUATION) > 60; SODIUM 143 mMol/L (135-145)
[2017-02-21 05:39] LABS: ANION GAP 9.7 (10.0-19.0); BLOOD UREA NITROGEN 10 mg/dL (6-24); CALCIUM 8.5 mg/dL (8.5-10.5); CHLORIDE 107 mMol/L (96-110); CO2 28 mMol/L (22-32); CREATININE 0.5 mg/dL (0.5-1.1); ESTIMATED GFR (MDRD EQUATION) > 60; POTASSIUM 3.7 mMol/L (3.7-5.1); SODIUM 141 mMol/L (135-145)
[2017-02-22 06:48] LABS: ANION GAP 11.6 (10.0-19.0); BLOOD UREA NITROGEN 15 mg/dL (6-24); CALCIUM 8.6 mg/dL (8.5-10.5); CHLORIDE 108 mMol/L (96-110); CO2 29 mMol/L (22-32); CREATININE 0.6 mg/dL (0.5-1.1); ESTIMATED GFR (MDRD EQUATION) > 60; MAGNESIUM 2.1 mg/dL (1.8-2.6); POTASSIUM 3.6 mMol/L (3.7-5.1); SODIUM 145 mMol/L (135-145)
[2017-02-23 04:30] LABS: HEMATOCRIT 35.1 % (33.0-46.0); HEMOGLOBIN 11.4 g/dL (10.0-15.0)
[2017-02-23 04:52] LABS: ANION GAP 13.5 (10.0-19.0); BLOOD UREA NITROGEN 17 mg/dL (6-24); CALCIUM 8.8 mg/dL (8.5-10.5); CHLORIDE 108 mMol/L (96-110); CO2 26 mMol/L (22-32); CREATININE 0.6 mg/dL (0.5-1.1); ESTIMATED GFR (MDRD EQUATION) > 60; POTASSIUM 3.5 mMol/L (3.7-5.1); SODIUM 144 mMol/L (135-145)
[2017-02-24] MEDS ORDERED: COLACE100 MG PO (11:45)
[2017-02-24] MEDS ORDERED: LEVAQUIN750 MG PO (11:46)
[2017-02-24] MEDS ORDERED: MIRALAX17 GM PO (11:48)
[2017-02-24] MEDS ORDERED: FLORASTOR250 MG PO (11:49)
[2017-02-24] MEDS ORDERED: ALBUTEROL2.5 MG/31 INH ×2 (11:50→11:52)
[2017-02-24] MEDS ORDERED: NORCO 5-325 TA1 EACH PO (11:51)
[2017-03-22] MEDS ORDERED: ALBUTEROL2.5 MG/31 INH (11:35)
[2017-03-22] MEDS ORDERED: CPAP INH (11:37)
[2017-03-22] MEDS ORDERED: OXYGEN M-15 INH (11:37)
== END 2017-02-24 13:42 | disposition disaster alternative care site (69) | DRG 853 ==
LOC: GMED 19:53 → GMSU 22:41 → GICU 22:41 → GMSU 02-20 12:58
PROVIDERS: Emergency Medicine; Hospitalist; Nurse Practitioner Family; ADMIT Internal Medicine
PROC: 0FC98ZZ Extirpation of Matter from Common Bile Duct, Via Natural or Artificial Opening Endoscopic (ICD-10-PCS; 2017-02-17)
PROC: 0F798ZZ Dilation of Common Bile Duct, Via Natural or Artificial Opening Endoscopic (ICD-10-PCS; 2017-02-17)
PROC: 0FT44ZZ Resection of Gallbladder, Percutaneous Endoscopic Approach (ICD-10-PCS; principal; 2017-02-19)
DX: A41.89 Other specified sepsis (principal); R65.21 Severe sepsis with septic shock; J96.21 Acute and chronic respiratory failure with hypoxia; K85.10 Biliary acute pancreatitis without necrosis or infection; K80.42 Calculus of bile duct with acute cholecystitis without obstruction; N39.0 Urinary tract infection, site not specified; G82.20 Paraplegia, unspecified; B96.1 Klebsiella pneumoniae [K. pneumoniae] as the cause of diseases classified elsewhere; K21.9 Gastro-esophageal reflux disease without esophagitis; I10 Essential (primary) hypertension; K44.9 Diaphragmatic hernia without obstruction or gangrene; G47.33 Obstructive sleep apnea (adult) (pediatric); E83.39 Other disorders of phosphorus metabolism; Z79.82 Long term (current) use of aspirin
CPT/HCPCS: C1751; C1769; C9113; C9399; J1100; J1644; J1940; J1956; J2270; J2405; J2543; J3010; J3370; J3480; J7030; J7040; J7050; J7060; J7120; Q9967

== ENCOUNTER → 2017-03-30 | Day surgery (SDC) | payer MEDICARE, BC ==
[~2017-03-30] VITALS: Ht 157.5 cm; Wt 74.0 kg
[~2017-03-30] MED LIST: ALBUTEROL2.5 MG/31 INH; ASCORBIC ACID500 MG PO; ASPIRIN LO-DOSE81 MG PO; CALCIUM 500 +1 EACH PO; COLACE100 MG PO; COZAAR50 MG PO; CPAP INH; FLORASTOR250 MG PO; KEPPRA500 MG PO; LEVAQUIN750 MG PO; MIRALAX17 GM PO; NORCO 5-325 TA1 EACH PO; OXYGEN M-15 INH; PRESERVISION A1 EACH PO; PRILOSEC20 MG PO; PROLIA60 MG/ML IV; THERAGRAN-M1 TAB PO; TRIMETHOPRIM100 MG PO; ULTRAM50 MG PO; VITAMIN D1000 UNIT PO; Z-PAK250 MG PO
== END | disposition disaster alternative care site (69) ==
LOC: GPOC 03-22 13:00 → GEND 06:47
PROC: 0DC98ZZ Extirpation of Matter from Duodenum, Via Natural or Artificial Opening Endoscopic (ICD-10-PCS; principal; 2017-03-30)
DX: Z46.59 Encounter for fitting and adjustment of other gastrointestinal appliance and device (principal); M19.90 Unspecified osteoarthritis, unspecified site; K21.9 Gastro-esophageal reflux disease without esophagitis; F32.9 Major depressive disorder, single episode, unspecified; D64.9 Anemia, unspecified; G47.33 Obstructive sleep apnea (adult) (pediatric); A41.59 Other Gram-negative sepsis; Z79.82 Long term (current) use of aspirin; Z79.899 Other long term (current) drug therapy; Z88.8 Allergy status to other drugs, medicaments and biological substances; Z99.89 Dependence on other enabling machines and devices
CPT/HCPCS: J2001; J7030